=== PATIENT | male | born 1955 | race Caucasian/White ===

== ENCOUNTER 2017-06-21 13:37 | Emergency (ER) | payer OTHER ==
[2016-02-07 05:47] VITALS: BMI 30.4
[~2017-06-21 13:37] MED LIST: HYDROCODONE-APA1 TAB PO; HYZAAR 50-12.51 TAB PO; LIPITOR20 MG PO
== END 2017-06-21 16:00 | disposition other institution (70) ==
LOC: D.ER 13:37
DX: S01.81XA Laceration without foreign body of other part of head, initial encounter (principal); W54.0XXA Bitten by dog, initial encounter; Y93.89 Activity, other specified; Y92.89 Other specified places as the place of occurrence of the external cause; I10 Essential (primary) hypertension